=== PATIENT | female | born 1965 | race Asian ===

== ENCOUNTER 2024-12-08 01:34 | Emergency (ER) | payer OTHER ==
[~2024-12-08] VITALS: Ht 152.4 cm; Wt 49.9 kg
[2024-12-08 01:53] VITALS: BP 121/68; TEMP 98.2; O2SAT 99
[2024-12-08] MEDS ORDERED: IBUP-1490 PO (02:02)
== END 2024-12-08 02:25 | disposition home or self-care (01) ==
LOC: ER 01:38
DX: G56.01 Carpal tunnel syndrome, right upper limb (principal)